=== PATIENT | female | born 1940 | race Caucasian/White ===

== ENCOUNTER 2020-12-21 11:10 | Day surgery (SDC) | payer MEDICARE, BC ==
[2020-12-21] MEDS ORDERED: Sodium Chloride 0.9% 1,000 ML IV SCH (11:30)
[2020-12-21 12:20] LABS: CORONAVIRUS COVID-19 NAA NEGATIVE (NEGATIVE)
[2020-12-21] MEDS ORDERED: Propofol 200 MG/20 ML SDV ONE (12:21)
[2020-12-21 13:55] VITALS: BP 119/67; PULSE 80
--- NOTE | 2020-12-21 15:12 | PROC ---
DATE OF PROCEDURE: SURGEON: Rey Mcpherson MD PROCEDURE PROPOSED: Synchronized cardioversion. FUEL CELL TECHNICIAN: Tanja Bella PA-C. PROCEDURE: Synchronized cardioversion. INDICATION: The patient presenting with atrial fibrillation, rate controlled, and on anticoagulant therapy. CONSENT: The patient was informed of the risks of the procedure, the possibility of chest discomfort, discomfort itself from the procedure, possible cardiac arrhythmia, heart attack, neurologic compromise. Benefit to obtain a conversion of the atrial fibrillation pattern to a sinus rhythm for improved cardiac performance. Anesthesia Services further giving consent from the patient in regard to anesthetic agents utilized today. The patient did indicate understanding of the risks and benefits of this procedure and gave consent to proceed. PROCEDURE IN DETAIL: The patient having had assessment in a time-out fashion of appropriate patient and procedure, had the procedure undertaken. The procedure was 1st initialized with Anesthesia providing anesthetic care to the patient and a level of anesthetic was acquired that the procedure could be cared forward. The patient had appropriate placement of patches on the chest and continued monitoring. The patient had synchronized approach. The patient underwent anesthetic, had synchronized attempted cardioversion to 50 joules without success. Then, again with synchronized again approach and rhythm match, the patient had a successful cardioversion at 100 joules. The patient had return to sinus rhythm. Followup 12-lead EKG showed sinus rhythm with no acute ST-T or otherwise change. Successful conversion from atrial fibrillation to sinus rhythm. The patient then had anesthetic withdrawn and post procedure, we were able to converse with the patient. She noted no undue distress and tolerated procedure well, had no discomfort. She did not have direct questions post procedure, of course there was anesthetic. Did discuss with her family then the outcomes of the procedure and planned follow up with them like we had also discussed with the patient. The patient will be following up with Tanja Bella in the next three days approximately in the clinic setting and further cares through her primary care provider Tanja at that time. The patient tolerated well. No complications noted. No blood loss noted. Rey Mcpherson MD /[id number]
--- NOTE | 2020-12-22 18:35 | PCM.EKG ---
#1 Interpretation EKG Date: 12/21/20 Time: 11:21 Rhythm: A-Fib Rate (Beats/Min): 98 [place]: Normal P-Wave: Variable QRS: Normal ST-T: Normal QT: Normal AL/PQ Interval: n/a Comparison: NA - No Prior EKG EKG Interpretation Comments: [facility]
--- NOTE | 2020-12-23 16:07 | PCM.EKG ---
#1 Interpretation EKG Date: 12/21/20 Time: 12:40 Rhythm: NSR Rate (Beats/Min): 75 [place]: Normal P-Wave: Present QRS: Normal ST-T: Normal QT: Normal [place]/PQ Interval: 1st degree av block Comparison: Change From Previous EKG EKG Interpretation Comments: ekg earlier in the day showed atrial fibrillation
== END 2020-12-21 14:00 | disposition home or self-care (01) ==
LOC: JP.SDS 11:10
PROVIDERS: ATTEND Internal Medicine
DX: I48.91 Unspecified atrial fibrillation (principal); Z01.812 Encounter for preprocedural laboratory examination; Z20.822 Contact with and (suspected) exposure to COVID-19; Z91.040 Latex allergy status; Z88.8 Allergy status to other drugs, medicaments and biological substances; Z79.01 Long term (current) use of anticoagulants
CPT/HCPCS: 0241U; 36415; 82565; 84132; 85610; 92960; 93005; 93041; J2704; J7030

== ENCOUNTER 2022-01-06 08:55 | Emergency (ER) | payer MEDICARE, BC ==
[2022-01-06 09:08] VITALS: BP 154/67; PULSE 48
== END 2022-01-06 11:16 | disposition home or self-care (01) ==
LOC: JP.ED 08:55
DX: M54.42 Lumbago with sciatica, left side (principal); M81.0 Age-related osteoporosis without current pathological fracture; I10 Essential (primary) hypertension; E03.9 Hypothyroidism, unspecified; Z88.5 Allergy status to narcotic agent; Z91.040 Latex allergy status; Z79.899 Other long term (current) drug therapy
CPT/HCPCS: 73502-LT; 99283

== ENCOUNTER 2022-12-24 10:46 | Emergency (ER) | payer MEDICARE, BC ==
[2022-12-24 11:18] VITALS: BP 145/88; PULSE 54
== END 2022-12-24 12:51 | disposition home or self-care (01) ==
LOC: JP.ED 10:46
DX: I77.6 Arteritis, unspecified (principal); I10 Essential (primary) hypertension; E03.9 Hypothyroidism, unspecified; Z86.718 Personal history of other venous thrombosis and embolism; Z88.6 Allergy status to analgesic agent; Z91.040 Latex allergy status; Z79.01 Long term (current) use of anticoagulants; Z79.899 Other long term (current) drug therapy
CPT/HCPCS: 99283

== ENCOUNTER 2022-12-31 01:40 | Emergency (ER) | payer MEDICARE, BC ==
[2022-12-31] MEDS ORDERED: Tranexamic Acid 1,000 MG/10 ML Vial TOP ONE ×2 (02:12→03:15)
[2022-12-31 03:27] VITALS: BP 144/96; PULSE 79
== END 2022-12-31 03:37 | disposition home or self-care (01) ==
LOC: JP.ED 01:40
DX: R04.0 Epistaxis (principal); I10 Essential (primary) hypertension; E03.9 Hypothyroidism, unspecified; Z88.5 Allergy status to narcotic agent; Z91.040 Latex allergy status; Z79.01 Long term (current) use of anticoagulants
CPT/HCPCS: 30903; 99283

== ENCOUNTER 2023-08-26 00:39 | Emergency (ER) | payer MEDICARE, BC ==
[2023-08-26 01:35] VITALS: BP 160/86; PULSE 61
[2023-08-26] MEDS: Acetaminophen 500 MG Tab PO ONE (02:14)
== END 2023-08-26 03:22 | disposition home or self-care (01) ==
LOC: JP.ED 00:39
DX: S12.112A Nondisplaced Type II dens fracture, initial encounter for closed fracture (principal); S01.81XA Laceration without foreign body of other part of head, initial encounter; I10 Essential (primary) hypertension; E03.9 Hypothyroidism, unspecified; Z91.040 Latex allergy status; Z88.8 Allergy status to other drugs, medicaments and biological substances; Z79.899 Other long term (current) drug therapy; Z90.49 Acquired absence of other specified parts of digestive tract; W19.XXXA Unspecified fall, initial encounter; Y92.009 Unspecified place in unspecified non-institutional (private) residence as the place of occurrence of the external cause
CPT/HCPCS: 12014; 70450; 72125; 76377; 99283; A9270

== ENCOUNTER 2025-06-23 09:57 | Day surgery (SDC) | payer MEDICARE, BC ==
[~2025-06-23 09:57] MED LIST: Lactated Ringers 1,000 ML IV SCH; Midazolam 1 MG/ML 2 ML SDV ONE; Nozin Nasal Sanitizer NASBOTH SCH; Propofol 200 MG/20 ML SDV ONE; fentaNYL 100 MCG/2 ML SDV ONE
[2025-06-23] MEDS: Nozin Nasal Sanitizer NASBOTH SCH (10:34)
[2025-06-23] MEDS: Lactated Ringers 1,000 ML IV SCH (10:34)
[2025-06-23] MEDS ORDERED: Lactated Ringers 1,000 ML ONE (14:12)
[2025-06-23] MEDS ORDERED: Ondansetron 4 MG/2 ML SDV IVPUSH PRN (15:56)
[2025-06-23] MEDS ORDERED: Magnesium Hydroxide 400 MG/5 ML Susp 30 ML Cup PO PRN (15:56)
[2025-06-23] MEDS ORDERED: Ketorolac 30 MG/ML SDV IVPUSH PRN (15:56)
[2025-06-23] MEDS ORDERED: CYANOCOBALAMIN IJ SCH (16:00)
[2025-06-23] MEDS ORDERED: [UNRECOGNIZED DRUG - OTHER] IJ SCH (16:00)
[2025-06-23] MEDS: Ketorolac 15 MG/ML SDV IVPUSH PRN (20:42)
[2025-06-23] MEDS ORDERED: Nozin Nasal Sanitizer NASBOTH SCH (21:00)
[2025-06-24] MEDS ORDERED: Non-Formulary Medication 1 Each (Magnesium Oxide [Magnesium] 400 MG Tablet) PO SCH (09:00)
[2025-06-24 15:13] VITALS: BP 91/65; PULSE 73
== END 2025-06-24 15:23 | disposition home health service (06) ==
LOC: JP.SDS 09:57 → JP.MS 15:56 → JP.SDS 06-24 15:23
PROVIDERS: ATTEND Specialist
DX: M17.12 Unilateral primary osteoarthritis, left knee (principal); M21.061 Valgus deformity, not elsewhere classified, right knee; Z79.899 Other long term (current) drug therapy; Z79.890 Hormone replacement therapy
CPT/HCPCS: 73560-26-LT; 73560-LT; 97110-GP; 97161-GP; 97166-GO; 97530-GP; A9270-GY; C1713; C1776; J0665; J0690; J1885; J2250; J2704; J3010; J7030; J7120

== ENCOUNTER 2025-06-28 14:39 | Emergency (ER) | payer MEDICARE, BC ==
[2025-06-28 17:12] LABS: BASOPHILS PERCENT AUTO 0.4 % (0.1-1.3); EOSINOPHILS ABSOLUTE AUTO 0.15 K/uL (0.00-0.40); EOSINOPHILS PERCENT AUTO 2.8 % (0.0-5.4); IMMATURE GRAN PERCENT AUTO 0.2 % (0.0-0.7); LYMPHOCYTES ABSOLUTE AUTO 1.26 K/uL (0.8-3.3); LYMPHOCYTES PERCENT AUTO 23.2 % (11.4-47.7); MONOCYTES ABSOLUTE AUTO 0.59 K/uL (0.20-0.90); MONOCYTES PERCENT AUTO 10.9 % (3.3-12.6); NEUTROPHILS ABSOLUTE AUTO 3.40 K/uL (1.0-7.6); NEUTROPHILS PERCENT AUTO 62.5 % (40.0-78.1); PLATELET COUNT,PLT 171 K/uL (130-375); RED BLOOD CELL COUNT 3.45 M/uL (3.77-5.24); WHITE BLOOD CELL COUNT,WBC 5.4 K/uL (3.2-11.0)
[2025-06-28 17:13] LABS: BASOPHILS ABSOLUTE AUTO 0.02 K/uL (0.00-0.10); IMMATURE GRAN ABSOLUTE AUTO 0.01 K/uL (0.00-0.23)
[2025-06-28 17:29] LABS: INR 1.2
[2025-06-28 17:33] LABS: A/G RATIO 0.8 (1.2-2.2); ALANINE AMINOTRANSFERASE,ALT 20 U/L (12-78); ASPARTATE AMNIOTRANSFERASE,AST 24 U/L (15-37); BILIRUBIN TOTAL 1.9 mg/dL (0.2-1.0); BLOOD UREA NITROGEN,BUN 14 mg/dL (7-18); CARBON DIOXIDE,CO2 30 mmol/L (21-32); CHLORIDE,CL 101 mmol/L (100-108); CREATININE 0.8 mg/dL (0.6-1.0); EST CRCL DRUG DOSING (CG) 41.40 mL/min; ESTIMATED GFR 73 mL/min (>60); GLUCOSE RANDOM 127 mg/dL (74-106); POTASSIUM,K 4.2 mmol/L (3.6-5.2); PROTEIN TOTAL,TP 6.8 g/dL (6.4-8.2); SODIUM,NA 140 mmol/L (140-148)
[2025-06-28 17:34] LABS: SEDIMENTATION RATE MANUAL 89 mm/hr (0-25)
[2025-06-28 18:09] VITALS: BP 144/62; PULSE 66
== END 2025-06-28 19:42 | disposition home or self-care (01) ==
LOC: JP.ED 14:39
DX: I82.412 Acute embolism and thrombosis of left femoral vein (principal); I82.432 Acute embolism and thrombosis of left popliteal vein; I10 Essential (primary) hypertension; E03.9 Hypothyroidism, unspecified; Z91.040 Latex allergy status; Z88.8 Allergy status to other drugs, medicaments and biological substances; Z79.890 Hormone replacement therapy; Z79.899 Other long term (current) drug therapy; Z90.49 Acquired absence of other specified parts of digestive tract
CPT/HCPCS: 36415; 80053; 83605; 85025; 85379; 85610; 85651; 86140; 93971; 99284; A9270